=== PATIENT | female | born 1980 | race Caucasian/White ===

== ENCOUNTER 2017-07-09 08:32 | Emergency (ER) | payer BC ==
[~2017-07-09] VITALS: Wt 65.0 kg
[~2017-07-09 08:32] MED LIST: ONDA4TAB35 PO; PROP50TA17 PO; PROP60CA PO
[2017-07-09] MEDS ORDERED: KETOROLAC 30 MG INJ IM STA (09:27)
[2017-07-09] MEDS ORDERED: METOCLOPRAMIDE 10 MG INJ IM ONE (09:30)
--- NOTE | 2017-07-09 10:37 | ERA ---
ER Documentation Chief Complaint Date/Time DATE: 07/09/17 TIME: 10:35 Chief Complaint giron HPI Otherwise healthy 36-year-old female with a chief complaint of headache. Has history of headaches, this is not the worst. Denies any medication use. Denies recreational drug use. Describes headache as on the right side and tight. Denies fever, worst headache of life, thunderclap headache, meningismus , temporal pain, eye pain, aura, change in vision, or new medications. The nursing notes have been reviewed and are consistent with the obtained history. ROS All systems reviewed and are negative except as per history of present illness. Medications Home Meds Active Scripts Ondansetron Hcl* (Zofran* ODT) 4 mg -ODT Tab.disper, 4 MG PO Q6 Y for NAUSEA AND /OR VOMITING, #10 TAB Prov:RACHEL NUNES 01/06/16 Reported Medications Propylthiouracil* (PTU*) 50 Mg Tab, 50 MG PO TID 07/06/13 Propranolol Hcl* (Propranolol Hcl*) 60 Mg Cap.sa.24h, 60 MG PO TID 07/06/13 Allergies Allergies: Coded Allergies: No Known Drug Allergy (Verified Allergy, Unknown, 07/06/13) PMhx/Soc History of Surgery: Yes (, KNEE) Anesthesia Reaction: No Hx Neurological Disorder: No Hx Respiratory Disorders: No Hx Cardiac Disorders: Yes (HTN) Hx Psychiatric Problems: No Hx Miscellaneous Medical Probl: Yes (HYPERTHYROIDISM) Hx Alcohol Use: No Hx Substance Use: No Hx Tobacco Use: No Physical Exam Vitals Vital Signs Date Time Temp Pulse Resp B/P Pulse Ox O2 Delivery O2 Flow Rate FiO2 07/09/17 08:35 98.0 82 20 118/69 100 Physical Exam Headache Physical Const: Healthy-appearing. Well-nourished. Well-developed. No acute distress. Head: Normocephalic, Atraumatic. Eyes: Non-injected; No discharge or foreign body. Ophthalmoscope exam unremarkable. EOMI and LUIS M bilaterally. No nystagmus. Neur: Awake, alert and oriented x3. Neurovascularly intact bilaterally. Psych: Normal Mood and Affect. Ears: Normal External Ears, EACs clear, TM normal bilaterally without erythema. Nose: Normal external nose; no discharge, septal deviation, or sinus tenderness. Oral: No oral edema visualized. Mucous membranes moist and pink. Neck: No cervical lymphadenopathy, masses or goiter palpated. Trachea midline. Full range of motion. Supple ~ No meningismus. Negative kernings and brudnizkis signs. Pulm: Good air movement in upper and lower respiratory tracts. No dyspnea, stridor, tripoding or drooling. Clear to auscultation bilaterally. Cardio: Regular rate and rhythm; No murmurs, gallops or rubs auscultated. No JVD grossly observed. Radial and posterior tibial pulses 2+ bilaterally. No cyanosis. Capillary refill less than 2 seconds. Abd: Soft, non tender, non distended. No guarding, masses. Normal bowel sounds. No McBurney's point tenderness. MS: Normal motor strength, normal tone with gross examination. Skin: No petechiae or rashes. No ulcer, induration, jaundice. Good turgor. Back: No midline, flank or CVA tenderness. Ext: No edema or palpable cord. Normal movement of all extremities grossly observed. Results 24 hrs Current Medications Medications (Trade) Dose Ordered Sig/Manas Route PRN Reason Start Time Stop Time Status Last Admin Dose Admin Ketorolac Tromethamine (Toradol) 30 mg ONCE STAT IM 07/09/17 09:27 07/09/17 09:28 DC 07/09/17 09:52 Metoclopramide HCl (Reglan) 10 mg ONCE ONCE IM 07/09/17 09:30 07/09/17 09:31 DC 07/09/17 09:52 Procedures/MDM Patient was worked up and evaluated for headache as described in the history and physical examination. ED treatment consisted of Reglan IM, Toradol 30 mg IM. There are no red flags to support brain CT evaluation. The current most likely diagnosis is tension-type headache versus migraine. Patient will be discharged with ibuprofen OTC. At this time, I have little suspicion for subarachnoid hemorrhage or other intracranial bleeds, meningitis, temporal arteritis, glaucoma, hypertensive urgency/emergency, cerebral ischemia, arterial dissection, brain abscess/tumor, pain secondary to trauma, septicemia, or other intracranial bleeds. I have spoke with the patient regarding their condition and future management. They have verbally responded that they understand their status and treatment plan. The patients vitals are stable, and their current condition is appropriate for discharge. The patient will be given discharge instructions with return precautions. Departure Diagnosis: Primary Impression: Headache Qualified Code: G44.209 - Tension-type headache, not intractable, unspecified chronicity pattern Condition: Stable Patient Instructions: Self-Care for Headaches Additional Instructions: Follow up with your PCP within the next 1-3 days for a more thorough evaluation and a possible referral to a specialist. Return the the emergency department immediately if symptoms worsen or change. If you have any questions regarding medications, ask your pharmacist or us before you leave. If any adverse reactions occur while taking your medications, discontinue the treatment and return to the emergency department immediately. Take your medications as directed, and complete the entire course of treatment. LINDA NUNEZ PA-C Jul 09, 2017 10:37
== END 2017-07-09 10:44 | disposition home or self-care (01) ==
LOC: FTE 08:32
DX: R51 Headache (principal); I10 Essential (primary) hypertension; E03.9 Hypothyroidism, unspecified
CPT/HCPCS: 96372; 99284; J1885; J2765